=== PATIENT | female | born 1985 | race Caucasian/White ===

== ENCOUNTER 2020-12-28 18:35 | Emergency (ER) | payer OTHER ==
[2020-12-28 19:53] LABS: HEMOGLOBIN 15.4 gm/dl (12.3-15.3); RED BLOOD COUNT 5.04 M/UL (4.00-5.10); WHITE BLOOD COUNT 6.3 K/UL (4.5-11.0)
[2020-12-28 20:22] LABS: BUN/CREATININE RATIO 22 (0-10)
== END 2020-12-28 22:23 | disposition home or self-care (01) ==
LOC: ER1 18:35
PROVIDERS: Student in an Organized Health Care Education/Training Program
DX: R55 Syncope and collapse (principal); E11.9 Type 2 diabetes mellitus without complications; E03.9 Hypothyroidism, unspecified; Z20.822 Contact with and (suspected) exposure to COVID-19; Z90.49 Acquired absence of other specified parts of digestive tract; Z79.899 Other long term (current) drug therapy
CPT/HCPCS: 0240U; 70450; 80053; 80307; 81001; 82550; 82553; 82962; 83605; 83690; 83735; 83874; 84100; 84439; 84443; 84484; 84702; 85025; 93005; 99284; J7120

== ENCOUNTER 2021-03-19 16:06 | Emergency (ER) | payer OTHER ==
[2021-03-19] MEDS ORDERED: NORFLEX 100 MG100 MG PO (20:39)
[2021-03-19] MEDS ORDERED: NAPROXEN500 M1 PO (20:39)
== END 2021-03-19 21:40 | disposition home or self-care (01) ==
LOC: ER1 16:06
DX: M54.41 Lumbago with sciatica, right side (principal); Z90.89 Acquired absence of other organs; Z79.899 Other long term (current) drug therapy
CPT/HCPCS: 72131; 99283; J1100